=== PATIENT | male | born 1970 | race Caucasian/White ===

== ENCOUNTER 2020-08-18 04:05 | Emergency (ER) | payer MEDICARE ==
--- NOTE | 2020-08-18 04:20 | EDM.PDOC ---
ED HPI GENERAL MEDICAL PROBLEM - General Chief Complaint: Head Injury Stated Complaint: FALL Time Seen by Provider: 08/18/20 04:09 Source of Information: Reports: Patient History Limitations: Reports: No Limitations - History of Present Illness INITIAL COMMENTS - FREE TEXT/NARRATIVE: Patient is a 49-year-old male was brought in by EMS after falling hitting his head. Patient states has [facility] he feels he was stumbled over and fell and hit his head. Patient is he has baseline has a paralysis in his body is difficult for him to explain what exactly it is. Patient exams AOx3 is moving all extremities does not have any pain but does have abrasions to his wrist and ankle. - Related Data Allergies Allergy/AdvReac Type Severity Reaction Status Date / Time No Known Allergies Allergy Verified 08/18/20 04:09 Past Medical History Cardiovascular History: Reports: High Cholesterol Other Neuro History: spinal cord injury Psychiatric History: Reports: Bipolar Social & Family History - Tobacco Use Tobacco Use Status *Q: Never Tobacco User - Recreational Drug Use Recreational Drug Use: No ED ROS GENERAL - Review of Systems Review Of Systems: See Below Constitutional: Reports: No Symptoms HEENT: Reports: No Symptoms Respiratory: Reports: No Symptoms Cardiovascular: Reports: No Symptoms Endocrine: Reports: No Symptoms GI/Abdominal: Reports: No Symptoms : Reports: No Symptoms Musculoskeletal: Reports: No Symptoms Skin: Reports: No Symptoms Neurological: Reports: No Symptoms Psychiatric: Reports: No Symptoms Hematologic/Lymphatic: Reports: No Symptoms Immunologic: Reports: No Symptoms ED EXAM, HEAD INJURY - Physical Exam Exam: See Below Exam Limited By: No Limitations General Appearance: Alert, WD/WN, No Apparent Distress Head: Atraumatic Eyes: Bilateral Eye: EOMI, PERRL Neck: Non-Tender, Full Range of Motion, Normal Alignment Respiratory: No Respiratory Distress, Lungs Clear, Normal Breath Sounds Cardiovascular: Normal Peripheral Pulses, Regular Rate, Rhythm GI/Abdominal Exam: Normal Bowel Sounds, Soft, Non-Tender Extremities: Normal Inspection, Normal Range of Motion Neurologic: Alert, Oriented x 3 - Wild[place] Coma Score Best Eye Response (Rubén): (4) Open Spontaneously Best Verbal Response (Wildwood): (5) Oriented Best Motor Response (Wildwood): (6) Obeys Commands Course - Vital Signs Last Recorded V/S: Last Vital Signs Temp 96.4 F L 08/18/20 04:08 Pulse 82 08/18/20 06:04 Resp 12 08/18/20 06:04 BP 99/61 08/18/20 06:04 Pulse Ox 99 08/18/20 06:04 - Orders/Labs/Meds Labs: Laboratory Tests 08/18/20 Range/Units 04:20 Urine Opiates Screen NEGATIVE (NEGATIVE) Ur Oxycodone Screen NEGATIVE (NEGATIVE) Urine Methadone Screen NEGATIVE (NEGATIVE) Ur Barbiturates Screen NEGATIVE (NEGATIVE) Ur Phencyclidine Scrn NEGATIVE (NEGATIVE) Ur Amphetamine Screen NEGATIVE (NEGATIVE) U Methamphetamines Scrn NEGATIVE (NEGATIVE) U Benzodiazepines Scrn NEGATIVE (NEGATIVE) U Cocaine Metab Screen NEGATIVE (NEGATIVE) U Marijuana (THC) Screen POSITIVE (NEGATIVE) - Re-Assessments/Exams Free Text/Narrative Re-Assessment/Exam: 08/18/20 06:[address] head and C-spine are both negative. Patient is at bedside and can take patient home. Departure - Departure Time of Disposition: 06:05 Disposition: Home, Self-Care 01 Condition: Good Clinical Impression: Head injury, Alcohol abuse - Discharge Information *PRESCRIPTION DRUG MONITORING PROGRAM REVIEWED*: Not Applicable *COPY OF PRESCRIPTION DRUG MONITORING REPORT IN PATIENT SISSY: Not Applicable Instructions: Alcohol Abuse and Dependence Information, Adult Referrals: PCP,Not In Area [Primary Care Provider] - Forms: ED Department Discharge Additional Instructions: The following information is given to patients seen in the emergency department who are being discharged to home. This information is to outline your options for follow-up care. We provide all patients seen in our emergency department with a follow-up referral. The need for follow-up, as well as the timing and circumstances, are variable depending upon the specifics of your emergency department visit. If you don't have a primary care physician on staff, we will provide you with a referral. We always advise you to contact your personal physician following an emergency department visit to inform them of the circumstance of the visit and for follow-up with them and/or the need for any referrals to a consulting specialist. The emergency department will also refer you to a specialist when appropriate. This referral assures that you have the opportunity for follow-up care with a sp ecialist. All of these measure are taken in an effort to provide you with optimal care, which includes your follow-up. Under all circumstances we always encourage you to contact your private physicia n who remains a resource for coordinating your care. When calling for follow-up care, please make the office aware that this follow-up is from your recent emergency room visit. If for any reason you are refused follow-up, please contact the [facility] Emergency Department at and asked to speak to the emergency department charge nurse. Please follow up with your primary care physician. If you do not have a primary care physician, see below: [facility] [address] [place] [id number] [facility] [address] [place] [address] You were seen today after hitting her head while drinking. You were observed in the ER the past few hours he had a CT head and a CT of your spine did not show any acute findings. Your symptoms could be likely due to a concussion. If you have any concerning signs or symptoms or other complaints please return to the ED immediately. Sepsis Event Note (ED) - Evaluation Sepsis Screening Result: No Definite Risk - Focused Exam Vital Signs: Vital Signs Temp Pulse Resp BP Pulse Ox 08/18/20 06:04 82 12 99/61 99 08/18/20 05:31 77 14 105/71 96 08/18/20 04:40 76 16 109/63 100 08/18/20 04:08 96.4 F L 84 20 118/70 98 - Assessment/Plan Plan: Patient is a 49-year-old male who presents today for a fall hitting his head w hile drinking. There was some concern EMS states that patient may have not been breathing and when he arrived someone there was given rescue breaths however speaking EMS the person was also probably more intoxicated than the patient so is unsure if patient actually needed dose rescue breaths. Patient exam is moving all extremities AOx3. Will obtain CT head and reassess.
--- NOTE | 2020-08-18 05:17 | CT ---
INDICATION: Status post fall striking head. COMPARISON: None available. TECHNIQUE: CT examination of the head was performed with 5 mm thick axial and 2 mm thick coronal and sagittal sections without intravenous contrast. Images were obtained from the vertex of the skull through the skull base, and I examined the images with the brain and bone windows. Please note that all CT scans at this facility use dose modulation, iterative reconstruction, and/or weight-based dosing when appropriate to reduce radiation dose to as low as reasonably achievable. FINDINGS: : The brain is normal in appearance for the patient`s age on today`s study, with no sign of mass lesion, mass effect, hemorrhage, or edema. The ventricles and sulci are normal in appearance for the patient`s age. Incidental note is made of a partially empty sella, a common finding in a patient of this age. The visualized portions of the orbits are normal in appearance. The visualized portions of the paranasal sinuses and mastoids are clear. The osseous structures are normal in their appearance with no sign of abnormality in the skull base or calvarium. IMPRESSION: Normal noncontrast CT of the head for the patient`s age. No sign of closed head injury. Please note that all CT scans at this facility use dose modulation, iterative reconstruction, and/or weight-based dosing when appropriate to reduce radiation dose to as low as reasonably achievable. Dictated by Avinash Beal MD @ 08/18/2020 5:15:[address] Avinash Beal @ Aug 18 2020 5:15AM
--- NOTE | 2020-08-18 05:57 | CT ---
INDICATION: Pain after fall, striking the head. COMPARISON: None available TECHNIQUE: CT examination of the cervical spine is performed without contrast using spiral technique. 2 mm thick axial, sagittal and coronal reconstructions were made. Please note that all CT scans at this facility use dose modulation, iterative reconstruction, and/or weight-based dosing when appropriate to reduce radiation dose to as low as reasonably achievable. FINDINGS: : There are changes of fusion from C4 through C7 with the fused segments in anatomic alignment. There is an anterior metallic plate extending from C5 through C7 with anchoring screws. The plate and screws are intact with no sign of fracture or loosening. The intervertebral discs are solidly fused from C4 through C7. The lamina is also solidly fused bilaterally, with cerclage wires. There has been resection of the spinous processes of C4 through C7. There is normal appearance of the C2-3 and C3-4 disc spaces. There is mild disc degenerative disease at C7-T1 with mild bilateral facet arthropathy. There is no sign of any foraminal stenosis. There is no sign of prevertebral soft tissue swelling. The airway structures are normal in appearance. The visualized skull base is normal in appearance. The visualized inferior brain is normal in appearance for the patient`s age. The apices of the lungs are clear. IMPRESSION: No sign of acute osseous injury to the cervical spine. Satisfactory appearance of fusion from C4 through C7 with solid osseous fusion. Please note that all CT scans at this facility use dose modulation, iterative reconstruction, and/or weight-based dosing when appropriate to reduce radiation dose to as low as reasonably achievable. Dictated by Avinash Beal MD @ 08/18/2020 5:56:[address] Avinash Beal @ Aug 18 2020 5:56AM
[2020-08-18 06:57] LABS: BLOOD UREA NITROGEN,BUN 14 mg/dL (7.0-18.0); CARBON DIOXIDE,CO2 28.1 mmol/L (21.0-32.0); CHLORIDE,CL 110 mmol/L (98-107); GLUCOSE RANDOM 96 mg/dL (74-106); SODIUM,NA 146 mmol/L (136-148)
--- NOTE | 2020-08-18 12:06 | PCM.EKG ---
#1 Interpretation EKG Interpretation Comments: As interpreted by ER physician: Ayan: Nonspecific ST-T wave abnormalities Normal axis No evidence of ST elevation CO Normal sinus rhythm heart rate of 73
== END 2020-08-18 07:29 | disposition home or self-care (01) ==
LOC: MW.ED 04:05
DX: S09.90XA Unspecified injury of head, initial encounter (principal); F10.10 Alcohol abuse, uncomplicated; W19.XXXA Unspecified fall, initial encounter; Y93.01 Activity, walking, marching and hiking
CPT/HCPCS: 36415; 70450; 70450-26; 72125; 72125-26; 80053; 80305-QW; 80307; 81001; 84484; 85025; 93005; 99284-25